=== PATIENT | female | born 1990 ===

== ENCOUNTER → 2022-05-13 | Emergency (ER) | payer MEDICAID ==
[~2022-05-13] VITALS: Ht 154.9 cm; Wt 64.5 kg
[~2022-05-13] MED LIST: acetaminophen 325mg tablet PO ONE
[2022-05-13 03:57] VITALS: BP 107/56
== END | disposition left against medical advice (07) ==
LOC: ER 03:48
DX: M54.9 Dorsalgia, unspecified (principal); Z53.21 Procedure and treatment not carried out due to patient leaving prior to being seen by health care provider
CPT/HCPCS: 71045